=== PATIENT | female | born 1955 | race Caucasian/White ===

== ENCOUNTER 2024-01-29 12:39 | Emergency (ER) | payer MEDICARE, MEDICAID ==
[~2024-01-29] VITALS: Ht 165.1 cm; Wt 65.0 kg
[2024-01-29 12:41] VITALS: BP 162/70; PULSE 92; RESP 16; TEMP 98.5; O2SAT 97
[2024-01-29 14:50] LABS: BASOPHILS % 0.6 % (0.0-2.0); EOSINOPHILS % 0.4 % (0.0-5.0); HEMATOCRIT. 37.4 % (36.0-48.0); HEMOGLOBIN. 12.7 g/dL (12.0-16.0); LYMPHOCYTES % 19.7 % (20.0-50.0); MEAN CORPUSCULAR HEMOGLOBIN 30.8 pg (28.0-32.0); MEAN CORPUSCULAR VOLUME 90.5 fL (81.0-99.0); MEAN PLATELET VOLUME 8.9 fl (7.4-10.4); NEUTROPHILS % 72.3 % (40.0-76.0); PLATELET 147 x1000/uL (130-400); RED BLOOD CELL COUNT 4.13 mill/uL (4.2-5.4); RED CELL DISTRIBUTION WIDTH 15.2 % (11.6-14.6); WHITE BLOOD COUNT 7.6 x1000/uL (4.5-11.0)
== END 2024-01-29 16:25 | disposition home or self-care (01) ==
LOC: ER 12:55
DX: F43.81 Prolonged grief disorder (principal); F41.9 Anxiety disorder, unspecified; R45.0 Nervousness; E11.9 Type 2 diabetes mellitus without complications; I10 Essential (primary) hypertension
CPT/HCPCS: 36415; 80048; 85025; 99283

== ENCOUNTER 2025-02-28 10:07 | Emergency (ER) | payer MEDICARE, MEDICAID ==
[~2025-02-28] VITALS: Ht 165.1 cm; Wt 75.0 kg
[2025-02-28 10:10] VITALS: O2SAT 99
[2025-02-28 10:23] VITALS: BP 135/48; PULSE 83; RESP 16; TEMP 36.7; O2SAT 100
[2025-02-28] MEDS ORDERED: GABA-529 MT (11:24)
[2025-02-28] MEDS ORDERED: IBUP-1455 MT (11:29)
== END 2025-02-28 11:35 | disposition home or self-care (01) ==
LOC: ER 10:07
DX: M79.642 Pain in left hand (principal); M79.641 Pain in right hand; I10 Essential (primary) hypertension; E11.40 Type 2 diabetes mellitus with diabetic neuropathy, unspecified; Z98.890 Other specified postprocedural states
CPT/HCPCS: 99282